=== PATIENT | female | born 1935 | race Caucasian/White ===

== ENCOUNTER 2018-01-02 19:46 | Emergency (ER) | payer MEDICARE, OTHER, SELFPAY ==
[2018-01-02 19:47] VITALS: PULSE 60; RESP 20; TEMP 36.1; O2SAT 94; BMI 52.1
[2018-01-02 20:11] VITALS: O2SAT 94
[2018-01-02 20:12] VITALS: BP 156/107; PULSE 66; RESP 20; O2SAT 94
--- NOTE | 2018-01-02 20:32 | RAD_ITS ---
STUDY: X-RAY - RIGHT HUMERUS REASON FOR EXAM: Female, 82 years old. Injury TECHNIQUE: 2 view(s) of the humerus. COMPARISON: None. FINDINGS: There is osteopenia. There is no fracture. There is no osseous destruction. No periosteal reaction. There is suggestion of rib fracture deformities which may be chronic in nature. RAD/Humerus min 2 Views IMPRESSION: Osteopenia Fracture deformities at the right ribs which may be chronic in nature Electronically Signed: Eliel Maya MD at 21:24 EDT Tel , Service support ,
--- NOTE | 2018-01-02 20:50 | RAD_ITS ---
STUDY: X-RAY CHEST REASON FOR EXAM: Female, 82 years old. Fall TECHNIQUE: Frontal and lateral views COMPARISON: March 31, 2017 FINDINGS: The lungs are clear and expanded. There is interstitial prominence. Normal size heart. Normal mediastinum and lion. Normal visualized pulmonary arteries. Calcified aortic arch and descending thoracic aorta. Degenerative changes of the thoracic spine. Old right rib fractures. There is no demonstrated abnormality of the visualized soft tissue structures of the upper abdomen. RAD/Chest PA and Lateral IMPRESSION: Interstitial prominence. Electronically Signed: Obie Murray DO at 21:30 EDT Tel [phone], Service support ,
--- NOTE | 2018-01-02 21:51 | ED.VISSUMM ---
- ER Visit Summary Date of Service: 01/02/18 Chief Complaint: Fall on steps History of Present Illness: The patient is a 82 F was walking up outdoor steps to a patio. Lost her balance fell injuring her right upper arm and right lateral rib cage. She denies any LOC. States she felt fine prior to the fall. Denies any prior rib fractures in the past. Denies hitting her head. She is on no blood thinners. Denies any neck pain. No hip pain. Physical Examination: Older female no acute distress. Vital signs are stable afebrile. Pulse ox 94% room air no signs of hypoxia. H EENT exam shows no signs of trauma in her face or scalp. Nontender. Pupils round reactive light. C-spine nontender. Trachea midline. Lungs good auscultation bilaterally. It hurts her to take a deep breath on the right rib cage. Heart regular rate and rhythm no murmur. Chest wall she has right lateral mid to lower rib cage tenderness. There is no ecchymosis or bruising. No subcu air. No crepitance. There is tenderness. Abdomen soft nontender. Pelvic girdle intact. She is moving all 4 extremities. She is tenderness in her mid humerus but there is no deformity. Right shoulder right elbow are nontender. Forearm is nontender with a strong radial pulse. 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 She has decreased range of motion of the right upper extremity due to pain in her rib cage and in the arm. Left upper extremity lower extremities are unremarkable no tenderness or deformities. She is a superficial abrasion on her left forearm. Neurologically she is awake and alert with no focal motor deficits. Back exam spine is nontender she has some right posterior lateral rib cage tenderness. Test Results: Chest x-ray 2 views read by myself the radiologist appears to be rib fractures on the right lateral ribs. This may be old but according to the history she has never had rib fractures. This will be treated as acute. There is no pneumothorax or hemothorax. Right humerus x-ray shows no acute abnormality. Both read by myself and the radiologist. Emergency Department Course and Treatment: Patient did not want anything for pain the ER. She will be given [place] for home. Treatment Plan: Pillow to right rib cage. [place] for pain. Patient knows return if she is feeling worse. Develops a fever or shortness of breath. Disposition: Discharge Impression: Acute fall on steps Right rib fractures ?2 Right upper arm contusion This note was generated with [employer] dictation software. It may contain incorrect words, spelling, and punctuation that were not noted in review of the chart prior to signing ED Disposition - Plan for ED Patient: Chief Complaint: Fall Referrals: Eliel Cooper MD [Primary Care Provider] -
--- NOTE | 2018-01-02 21:55 | ED.DCSUM_ITS ---
- ER Visit Summary Date of Service: 01/02/18 Chief Complaint: Fall on steps History of Present Illness: The patient is a 82 F was walking up outdoor steps to a patio. Lost her balance fell injuring her right upper arm and right lateral rib cage. She denies any LOC. States she felt fine prior to the fall. Denies any prior rib fractures in the past. Denies hitting her head. She is on no blood thinners. Denies any neck pain. No hip pain. Physical Examination: Older female no acute distress. Vital signs are stable afebrile. Pulse ox 94% room air no signs of hypoxia. H EENT exam shows no signs of trauma in her face or scalp. Nontender. Pupils round reactive light. C-spine nontender. Trachea midline. Lungs good auscultation bilaterally. It hurts her to take a deep breath on the right rib cage. Heart regular rate and rhythm no murmur. Chest wall she has right lateral mid to lower rib cage tenderness. There is no ecchymosis or bruising. No subcu air. No crepitance. There is tenderness. Abdomen soft nontender. Pelvic girdle intact. She is moving all 4 extremities. She is tenderness in her mid humerus but there is no deformity. Right shoulder right elbow are nontender. Forearm is nontender with a strong radial pulse. 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 She has decreased range of motion of the right upper extremity due to pain in her rib cage and in the arm. Left upper extremity lower extremities are unremarkable no tenderness or deformities. She is a superficial abrasion on her left forearm. Neurologically she is awake and alert with no focal motor deficits. Back exam spine is nontender she has some right posterior lateral rib cage tenderness. Test Results: Chest x-ray 2 views read by myself the radiologist appears to be rib fractures on the right lateral ribs. This may be old but according to the history she has never had rib fractures. This will be treated as acute. There is no pneumothorax or hemothorax. Right humerus x-ray shows no acute abnormality. Both read by myself and the radiologist. Emergency Department Course and Treatment: Patient did not want anything for pain the ER. She will be given [place] for home. Treatment Plan: Pillow to right rib cage. [place] for pain. Patient knows return if she is feeling worse. Develops a fever or shortness of breath. Disposition: Discharge Impression: Acute fall on steps Right rib fractures ?2 Right upper arm contusion This note was generated with [employer] dictation software. It may contain incorrect words, spelling, and punctuation that were not noted in review of the chart prior to signing ED Disposition - Plan for ED Patient: Chief Complaint: Fall Referrals: Eliel Cooper MD [Primary Care Provider] -
--- NOTE | 2018-01-02 21:55 | ED.DEP ---
ED Disposition - Plan for ED Patient: Disposition: Home or Assisted Living Chief Complaint: Fall Instructions: ED Fx Rib, ED Contusion Upper Ext Prescriptions: Hydrocodone/Acetaminophen [[place] 5-325 Tablet] 1 ea PO Q4H PRN PRN #20 tab PRN Reason: Pain Referrals: Eliel Cooper MD [Primary Care Provider] - 1 Week if not improving Additional Instructions: Ice to chest wall. Use a pillow to support her right rib fractures. Aleve and [place] as needed for pain. Return if short of breath, fever or feeling a lot worse. Follow-up your primary care physician.
--- NOTE | 2018-01-02 21:58 | DCINST.ED_ITS ---
ED Disposition - Plan for ED Patient: Disposition: Home or Assisted Living Chief Complaint: Fall Instructions: ED Fx Rib, ED Contusion Upper Ext Prescriptions: Hydrocodone/Acetaminophen [[place] 5-325 Tablet] 1 ea PO Q4H PRN PRN #20 tab PRN Reason: Pain Referrals: Eliel Cooper MD [Primary Care Provider] - 1 Week if not improving Additional Instructions: Ice to chest wall. Use a pillow to support her right rib fractures. Aleve and [place] as needed for pain. Return if short of breath, fever or feeling a lot worse. Follow-up your primary care physician.
[2018-01-02] MEDS: HYDROcodone Bitartrate/Apap 5/325 Tablet PO (22:15)
[2018-01-02 22:16] VITALS: BP 162/97; PULSE 67; RESP 21; O2SAT 95
== END 2018-01-02 22:16 | disposition home or self-care (01) ==
PROVIDERS: Emergency Provider Emergency Medicine; Family Provider Family Medicine; PCP Family Medicine
DX: S22.41XA Multiple fractures of ribs, right side, initial encounter for closed fracture (principal); S40.021A Contusion of right upper arm, initial encounter; W10.9XXA Fall (on) (from) unspecified stairs and steps, initial encounter; Y93.01 Activity, walking, marching and hiking; Y92.89 Other specified places as the place of occurrence of the external cause; Y99.9 Unspecified external cause status; I10 Essential (primary) hypertension; Z79.899 Other long term (current) drug therapy; Z87.442 Personal history of urinary calculi
CPT/HCPCS: 71046; 73060; 99282

== ENCOUNTER 2018-01-03 09:29 | Emergency (ER) | payer MEDICARE, OTHER, SELFPAY ==
[2018-01-03 09:30] VITALS: BP 158/84; PULSE 73; RESP 18; TEMP 35.9; O2SAT 95; BMI 49.4
--- NOTE | 2018-01-03 10:03 | RAD_ITS ---
STUDY: X-RAY CHEST REASON FOR EXAM: Female, 82 years old. Right-sided chest pain following a fall. TECHNIQUE: PA and lateral views of the chest. COMPARISON: Comparison is made with prior study dated January 02, 2018. FINDINGS: Hyperinflation. Stable increased linear markings at the lung bases suggestive of scarring. There is no demonstrated pleural abnormality. There is mild cardiac enlargement. Calcified mitral valve annulus. Normal mediastinum and lion. Normal visualized pulmonary arteries. There is atherosclerotic calcification of the aortic arch with tortuosity. There are diffuse degenerative changes of the visualized thoracic spine. Mild dextroscoliosis. There is evidence of nondisplaced right-sided rib fractures most likely of the sixth and seventh ribs. There is no demonstrated abnormality of the visualized soft tissue structures of the upper abdomen. RAD/Chest PA and Lateral IMPRESSION: Hyperinflation and stable increased markings at the lung bases suggestive of scarring. Right-sided rib fractures. Electronically Signed: Dax Herring MD at 10:39 EDT Tel [phone], Service support ,
--- NOTE | 2018-01-03 11:47 | ED.VISSUMM ---
- ER Visit Summary Date of Service: 01/03/18 Chief Complaint: Rib fractures History of Present Illness: The patient is a 82 F who presents with right-sided rib fractures. She fell yesterday. She was seen in the department diagnosed with rib fractures and discharged with [place]. Today after coughing she had increased pain and felt short of breath. Therefore she presented here for reevaluation. No new fall or injuries. Physical Examination: Afebrile vitals are unremarkable Heart regular rate and rhythm Lungs clear Right-sided chest wall tenderness Equal breath sounds bilaterally Test Results: Chest x-ray shows right-sided rib fractures otherwise unremarkable. No pneumothorax. Emergency Department Course and Treatment: Patient is resting comfortably here. She took her pain medication for the first time this morning. She was advised that she is going to have increased pain especially with coughing. She was advised on supportive care. We also discussed icing. Family states that they do check on her often but she lives by herself. We talked to social work. We have arranged for home health and a lift chair. Family are agreeable to plan for discharge. She understands return for new or worsening symptoms and was discharged home in improved condition. Treatment Plan: [] Disposition: Discharge Impression: Acute right-sided rib fractures This note was generated with [employer] dictation software. It may contain incorrect words, spelling, and punctuation that were not noted in review of the chart prior to signing ED Disposition - Plan for ED Patient: Chief Complaint: Other, Pain/Inj Referrals: Eliel Cooper MD [Primary Care Provider] -
--- NOTE | 2018-01-03 11:50 | ED.DEP ---
ED Disposition - Plan for ED Patient: Chief Complaint: Other, Pain/Inj Instructions: ED Fx Rib Referrals: Eliel Cooper MD [Primary Care Provider] -
--- NOTE | 2018-01-03 11:55 | CM.ED ---
Social Work Note Referral from Dr. Cortez for resources for pt and family. Introduced self and role at [facility]. The pt is accompanied by both daughters, Lurdes and Shanna. Pt reports that she lives alone in a one level condo. Primarily uses a cane for ambulation, but also has a walker at home. She has been experiencing pain following a rib fracture, and family is not able to help 26/12. They express concerns with her being on Lasix, and needing to get out of her recliner to go to the bathroom frequently. Discuss options of HHC, SNF and [facility]. At this time pt and family would like her to return home with a lift chair and HHC. Inform that our C can not initiate services until Monday, family in agreement. Placed call to Rick at [facility] who confirms that insurance does not cover lift chairs and they rent them for $150-$175/month. Per Rick they do deliver, but do not move furniture, so the resident will need to have a space cleared where they want it. Understanding expressed and family to stop at [facility] on their way home. Also request a referral be made to [facility] with Lurdes being the contact. Referral made via online referral process and confirmation received. No further needs identified at this time. Placed call to Dianna with [facility], and confirmed Monday start date. Referral faxed. Arleen Ramirez, CABIN SUPERVISOR, LETTER CARRIER
== END 2018-01-03 11:56 | disposition home or self-care (01) ==
PROVIDERS: Emergency Provider Emergency Medicine; Family Provider Family Medicine; PCP Family Medicine
DX: S22.41XD Multiple fractures of ribs, right side, subsequent encounter for fracture with routine healing (principal); W19.XXXD Unspecified fall, subsequent encounter; I10 Essential (primary) hypertension; Z79.899 Other long term (current) drug therapy
CPT/HCPCS: 71046; 99282